=== PATIENT | male | born 1970 | race Caucasian/White ===

== ENCOUNTER 2017-05-11 14:57 | Emergency (ER) | payer SELFPAY ==
[2017-05-11 15:03] VITALS: BP 179/103; BMI 28.1
--- NOTE | 2017-05-11 15:25 | DR.GENAD ---
HPI - PCP Primary Care Physician: none - Complaint/Symptoms Chief Complaint Doctors Comments: Patient presents with complatin of blood pressure systolic 170s, for the past week. He has no physician. He also reports that he has had frontal headacge fir tge oast tgree days. Chief Complaint:: " I have had high blood pressure for three days now" No other problems with patient besides that - Source History Provided: Patient - Mode of Arrival Mode of Arrival: Ambulatory - Timing Onset of Chief Complaint: 05/08/17 PMH - PMH Past Medical History: Yes Past Medical History: Arthritis, GERD Past Surgical History: Yes Surgical History: Tonsillectomy - Family History History of Family Medical Conditions: Yes Family Medical History: Diabetes Mellitus, Cancer, Heart Failure, Hypertension - Social History Does patient currently use any type of tobacco product: No Have you used tobacco products in the last 12 months: No Type of Tobacco Use: None Does any household member use tobacco: No Alcohol Use: None Do you use any recreational Drugs:: No Lives With: Family Lives Where: Home - infectious screening In the last 2 months have you had wt loss of >10#?: NO Have you had fever, night sweats or hemotysis?: No Have you traveled outside the country in the last 6 months?: No Isolation: Standard ROS - Review of Systems Constitutional: No Symptoms Reported Eyes: No Symptoms Reported ENTM: No Symptoms Reported Respiratoy: No Symptoms Reported Cardiovascular: No Symptoms Reported Gastrointestinal/Abdominal: No Symptoms Reported Genitourinary: No Symptoms Reported Neurological: No Symptoms Reported Musculoskeletal: No Symptoms Reported Integumentary: No Symptoms Reported Hematologic/Lymphatic: No Symptoms Reported Endocrine: No Symptoms Reported Psychiatric: No Symptoms Reported All Other Systems: Reviewed and Negative PE - Vital Signs Vitals: Temperature 98 F Pulse Rate 71 Respiratory Rate 18 Blood Pressure 179/103 O2 Sat by Pulse Oximetry 98 - General General Appearance: Alert - Head Head Exam: Normal Inspection, Atraumatic - Eyes Eye exam: Normal Appearance, PERRL, EOMI - ENT ENT Exam: Normal Exam External Ear Exam: Normal External Inspection TM/Canal Exam: Bilateral Normal Nose Exam: Normal Nose Exam Mouth Exam: Normal Inspection Throat Exam: Normal Inspection - Neck Neck Exam: Normal Inspection - Chest Chest Inspection: Normal Inspection, Symmetric Chest Wall Rise - Respiratory Respiratory Exam: Normal Lung Sounds Bilat Respiratory Exam: Bilateral Clear to Auscultation - Cardiovascular Cardiovascular Exam: Regular Rate, Normal Rhythm - Abdominal Exam Abdominal Exam: Normal Inspection Abdominal Tenderness: negative: RUQ, RLQ, LUQ, LLQ, Epigastrium, Suprapubic, Diffuse, Mild, Moderate, Severe, Other - Extremities Extremities Exam: Normal Inspection, Full ROM - Back Back Exam: Normal Inspection, Full ROM - Neurologic Neurological Exam: Alert, Oriented X3, CN II-XII Intact - Psychiatric Psychiatric Exam: Normal Affect, Normal Mood - Skin Skin Exam: Warm, Dry, Intact MDM - Additional Information Findings: visual acuity 20/30 OD;20/25 OS - Diagnosis Discharge Problem: Headache Qualifiers: Headache type: unspecified Headache chronicity pattern: acute headache Intractability: not intractable Qualified Code(s): R51 - Headache - Discharge Plan Condition: Stable - Follow ups/Referrals Follow ups/Referrals: NFD,None [Primary Care Provider] - 3 days - Instructions
[2017-05-11] MEDS ORDERED: TORADOL 60 MG VIAL IM ONE (15:29)
[2017-05-11] MEDS ORDERED: TORADOL 60 MG VIAL ONE (15:30)
== END 2017-05-11 15:40 | disposition home or self-care (01) ==
LOC: ER 15:04
DX: R51 Headache (principal)
CPT/HCPCS: 96372; 99282; J1885

== ENCOUNTER 2017-08-14 14:42 | Emergency (ER) | payer SELFPAY ==
[2017-08-14 14:47] VITALS: BMI 26.6
--- NOTE | 2017-08-14 15:19 | DR.EXTPAIN ---
HPI - Time seen Time seen: 15:15 - PCP Primary Care Physician: leon - HPI Comment HPI Comment: PATIENT SAID PAIN IS GETTING WORSE. NO DRAINAGE REPORTED. - Complaint/Symptoms Chief Complaint Doctor Comments: REDNESS AND SWELLING LT BREAST WITH PUSTULAR RASH RT CHEST AND ANGLE OF RT MOUTH. HAVE HISTORY OF MRSA INFECTION. NO FEVER. Chief Complaint:: pt stated he has a knot under his left arm that has been on there for 3 days. pt stated he has a hx of mrsa - Nurses notes reviewed Nurses Notes Review: Yes - Source History Provided: Patient - Mode of arrival Mode of Arrival: Ambulatory - Timing Onset of Chief Complaint: 08/12/17 - Context History of: None - Associated signs and symptoms Associated Signs and Symptoms: Pain, Swelling PMH - PMH Past Medical History: Yes Past Medical History: Arthritis, GERD Past Surgical History: Yes Surgical History: Tonsillectomy - Family History History of Family Medical Conditions: Yes Family Medical History: Diabetes Mellitus, Cancer, Heart Failure, Hypertension - Social History Does patient currently use any type of tobacco product: No Have you used tobacco products in the last 12 months: No Type of Tobacco Use: None Does any household member use tobacco: No Alcohol Use: None Do you use any recreational Drugs:: No Lives With: Family Lives Where: Home - infectious screening In the last 2 months have you had wt loss of >10#?: NO Have you had fever, night sweats or hemotysis?: No Have you traveled outside the country in the last 6 months?: No Isolation: Standard ROS - Review of Systems Constitutional: Fever (AT HOME, FEVER NOTED) Eyes: No Symptoms Reported ENTM: No Symptoms Reported Respiratoy: No Symptoms Reported Cardiovascular: Other (LT BREAST REDNESS, RT CHEST PUSTULAR RASH CRUSTED AND RASH ANGLE RT MOUTH.) Gastrointestinal/Abdominal: No Symptoms Reported Genitourinary: No Symptoms Reported Neurological: No Symptoms Reported Musculoskeletal: No Symptoms Reported Integumentary: Lesions (SKIN LESIONS RT CHEST AND CORNER RT MOUTH.), Other ( REDNESS LEFT BREAST.) Hematologic/Lymphatic: No Symptoms Reported Endocrine: No Symptoms Reported All Other Systems: Reviewed and Negative PE - Vital Signs Vitals: Temperature 98.0 F Pulse Rate 67 Respiratory Rate 16 Blood Pressure 157/99 O2 Sat by Pulse Oximetry 100 - General Limitations: No Limitations General Appearance: Alert - Head Head Exam: Normal Inspection - Eyes Eye exam: Normal Appearance - ENT ENT Exam: Normal External Ear Exam, Other (SKIN LESION RT ANKLE OF MOUTH.) - Neck Neck Exam: Normal Inspection - Chest Chest Inspection: Symmetric Chest Wall Rise - Respiratory Respiratory Exam: Normal Lung Sounds Bilat Respiratory Exam: Bilateral Clear to Auscultation - Cardiovascular Cardiovascular Exam: Regular Rate, Normal Rhythm, Normal Heart Sounds - Abdominal Exam Abdominal Exam: Normal Bowel Sounds, Soft. negative: Tenderness - Back Back Exam: Normal Inspection - Neurological Neurological Exam: Alert, Oriented X3 - Psychiatric Psychiatric Exam: Normal Affect, Normal Mood - Skin Skin Exam: Erythema, Other (REDNESS AND TENDERNESS LT BREAST) MDM - Differential Diagnosis Differential Diagnosis: Other (CELLULITIS LT BREAST, HISTORY MRSA INFECTION, PUSTULAR RASH RT CHEST.LESION ANGLE RT MOUTH.) Course - Treatment Treatment: SEE ORDERS. - Education/Counseling Education/Counseling: Patient, Family, Education Educated On: Diagnosis, Needs for Follow Up ROR - Labs Reviewed Laboratory Results Reviewed?: Yes Result Diagrams: 08/15/17 04:53 08/15/17 04:53 Laboratory: WBC 8.0 X10^3/uL (3.6-10.0) 08/14/17 15:30 RBC 5.16 X10^6/uL (4.7-6.0) 08/14/17 15:30 Hgb 15.8 g/dL (13.5-18.0) 08/14/17 15:30 Hct 44.7 % (42.0-54.0) 08/14/17 15:30 MCV 86.5 fL (80.0-100.0) 08/14/17 15:30 MCH 30.7 pg (27.0-34.0) 08/14/17 15:30 MCHC 35.4 g/dL (33.0-35.0) H 08/14/17 15:30 RDW 13.3 % (11.6-16.5) 08/14/17 15:30 Plt Count 241 X10^3/uL (150.0-450.0) 08/14/17 15:30 MPV 8.6 fL (7.4-11.0) 08/14/17 15:30 Neut % (Auto) 67.8 % (42.0-75.0) 08/14/17 15:30 Lymph % (Auto) 20.4 % (21.0-51.0) L 08/14/17 15:30 Tate % (Auto) 6.0 % (0.0-13.0) 08/14/17 15:30 Eos % (Auto) 4.9 % (0.9-2.9) H 08/14/17 15:30 Baso % (Auto) 0.9 % (0.2-1.0) 08/14/17 15:30 Neut # (Auto) 5.4 x10^3/uL (2.2-4.8) H 08/14/17 15:30 Lymph # (Auto) 1.6 X10^3/uL (1.3-2.9) 08/14/17 15:30 Tate # (Auto) 0.5 x10^3/uL (0.3-0.8) 08/14/17 15:30 Eos # (Auto) 0.4 x10^3/uL (0.0-0.2) H 08/14/17 15:30 Baso # (Auto) 0.1 X10^3/uL (0.0-0.1) 08/14/17 15:30 Absolute Nucleated RBC 0.0 /100WBC 08/14/17 15:30 Sodium 139 mmol/L (136-145) 08/14/17 15:30 Corrected Sodium TNP 08/14/17 15:30 Potassium 5.4 mmol/L (3.5-5.1) H 08/14/17 15:30 Chloride 101 mmol/L (98-107) 08/14/17 15:30 Carbon Dioxide 32.9 mmol/L (21-32) H 08/14/17 15:30 BUN 10 mg/dL (7-18) 08/14/17 15:30 Creatinine 1.21 mg/dL (0.70-1.30) 08/14/17 15:30 Est GFR (MDRD) Af Amer > 60 (>60) 08/14/17 15:30 Est GFR (MDRD) Non-Af > 60 (>60) 08/14/17 15:30 Glucose 107 mg/dL (65-99) H 08/14/17 15:30 Calcium 9.5 mg/dL (8.5-10.1) 08/14/17 15:30 Corrected Calcium TNP 08/14/17 15:30 Total Bilirubin 1.00 mg/dL (0.2-1.0) 08/14/17 15:30 AST 85 Units/L (15-37) H 08/14/17 15:30 ALT 125 Units/L (12-78) H 08/14/17 15:30 Alkaline Phosphatase 143 Units/L (46-116) H 08/14/17 15:30 Total Protein 8.1 g/dL (6.4-8.2) 08/14/17 15:30 Albumin 3.7 g/dL (3.4-5.0) 08/14/17 15:30 Globulin 4.4 g/dL (2.5-4.5) 08/14/17 15:30 Albumin/Globulin Ratio 0.8 Ratio (1.1-2.1) L 08/14/17 15:30 - Diagnosis Discharge Problem: Acute mastitis of left breast, History of MRSA infection - Discharge Plan Disposition: ADMITTED INPATIENT Condition: Stable - Follow ups/Referrals - Instructions
[2017-08-14 15:53] LABS: BASOPHILS # (AUTO) 0.1 X10^3/uL (0.0-0.1); BASOPHILS % (AUTO) 0.9 % (0.2-1.0); EOSINOPHILS # (AUTO) 0.4 x10^3/uL (0.0-0.2); EOSINOPHILS % (AUTO) 4.9 % (0.9-2.9); HEMATOCRIT 44.7 % (42.0-54.0); HEMOGLOBIN 15.8 g/dL (13.5-18.0); LYMPHOCYTES # (AUTO) 1.6 X10^3/uL (1.3-2.9); LYMPHOCYTES % (AUTO) 20.4 % (21.0-51.0); MEAN CORPUSCULAR HEMOGLOBIN 30.7 pg (27.0-34.0); MEAN CORPUSCULAR HGB CONC 35.4 g/dL (33.0-35.0); MEAN CORPUSCULAR VOLUME 86.5 fL (80.0-100.0); MEAN PLATELET VOLUME 8.6 fL (7.4-11.0); MONOCYTES # (AUTO) 0.5 x10^3/uL (0.3-0.8); NEUTROPHILS # (AUTO) 5.4 x10^3/uL (2.2-4.8); NEUTROPHILS % (AUTO) 67.8 % (42.0-75.0); PLATELET COUNT 241 X10^3/uL (150.0-450.0); RED BLOOD COUNT 5.16 X10^6/uL (4.7-6.0); RED CELL DISTRIBUTION WIDTH 13.3 % (11.6-16.5)
[2017-08-14 16:00] LABS: ALANINE AMINOTRANSFERASE 125 Units/L (12-78); ALBUMIN 3.7 g/dL (3.4-5.0); ALKALINE PHOSPHATASE 143 Units/L (46-116); ASPARTATE AMINO TRANSFERASE 85 Units/L (15-37); BLOOD UREA NITROGEN 10 mg/dL (7-18); CALCIUM 9.5 mg/dL (8.5-10.1); CARBON DIOXIDE 32.9 mmol/L (21-32); CHLORIDE 101 mmol/L (98-107); CREATININE 1.21 mg/dL (0.70-1.30); SODIUM 139 mmol/L (136-145); TOTAL PROTEIN 8.1 g/dL (6.4-8.2); eGFR BLACK RACES > 60 (>60); eGFR NON BLACK RACES > 60 (>60)
[2017-08-14] MEDS ORDERED: VANCOMYCIN HCL IV ONE (16:53)
[2017-08-14] MEDS ORDERED: TORADOL 30 MG VIAL IVP ONE (16:53)
[2017-08-14] MEDS ORDERED: D5W IV ONE (16:53)
[2017-08-14] MEDS ORDERED: TORADOL 30 MG VIAL ONE (16:58)
[2017-08-14] MEDS ORDERED: VANCOMYCIN HCL 1 GM VIAL ONE (16:58)
[2017-08-14] MEDS ORDERED: NS 250 ML IV 250 ML IV ONE (16:59)
[2017-08-14 17:04] LABS: BILIRUBIN,URINE NEGATIVE (NEGATIVE); BLOOD/HEMOGLOBIN,URINE NEGATIVE (NEGATIVE); GLUCOSE, URINE NEGATIVE (NEGATIVE); KETONES,URINE NEGATIVE (NEGATIVE); LEUKOCYTE ESTERASE ,URINE NEGATIVE (NEGATIVE); NITRITES,URINE NEGATIVE (NEGATIVE); PROTEIN,URINE NEGATIVE (NEGATIVE); UROBILINOGEN,URINE NORMAL (NORMAL)
[2017-08-14 17:12] LABS: C-REACTIVE PROTEIN 18.4 mg/L (0-3.0)
[2017-08-14 17:12] LABS: APPEARANCE,URINE CLEAR (CLEAR); COLOR,URINE YELLOW (YELLOW)
[2017-08-14 17:22] LABS: LACTIC ACID 1.3 mmol/L (0.4-2.0)
[2017-08-14] MEDS ORDERED: PHENERGAN TAB 25 MG PO PRN (17:32)
[2017-08-14] MEDS: LR 1000 ML IV 1,000 ML IV SCH (18:22)
[2017-08-14] MEDS: CLEOCIN 600 MG IV PREMIX 600 MG/50 ML BAG IV SCH (22:00)
[2017-08-15] MEDS: LR 1000 ML IV 1,000 ML IV SCH ×3 (02:35→17:55)
[2017-08-15 05:25] LABS: BASOPHILS # (AUTO) 0.1 X10^3/uL (0.0-0.1); BASOPHILS % (AUTO) 1.7 % (0.2-1.0); EOSINOPHILS # (AUTO) 0.6 x10^3/uL (0.0-0.2); EOSINOPHILS % (AUTO) 7.4 % (0.9-2.9); HEMATOCRIT 42.5 % (42.0-54.0); HEMOGLOBIN 14.8 g/dL (13.5-18.0); LYMPHOCYTES % (AUTO) 36.3 % (21.0-51.0); MEAN CORPUSCULAR HEMOGLOBIN 30.3 pg (27.0-34.0); MEAN CORPUSCULAR HGB CONC 34.8 g/dL (33.0-35.0); MEAN CORPUSCULAR VOLUME 87.2 fL (80.0-100.0); MEAN PLATELET VOLUME 8.8 fL (7.4-11.0); MONOCYTES # (AUTO) 0.5 x10^3/uL (0.3-0.8); MONOCYTES % (AUTO) 5.7 % (0.0-13.0); NEUTROPHILS # (AUTO) 4.1 x10^3/uL (2.2-4.8); NEUTROPHILS % (AUTO) 48.9 % (42.0-75.0); PLATELET COUNT 245 X10^3/uL (150.0-450.0); RED BLOOD COUNT 4.88 X10^6/uL (4.7-6.0); RED CELL DISTRIBUTION WIDTH 12.8 % (11.6-16.5); WHITE BLOOD COUNT 8.3 X10^3/uL (3.6-10.0)
[2017-08-15 05:32] LABS: ALANINE AMINOTRANSFERASE 109 Units/L (12-78); ALBUMIN 3.1 g/dL (3.4-5.0); ALKALINE PHOSPHATASE 140 Units/L (46-116); ASPARTATE AMINO TRANSFERASE 67 Units/L (15-37); BLOOD UREA NITROGEN 11 mg/dL (7-18); CALCIUM 8.4 mg/dL (8.5-10.1); CARBON DIOXIDE 29.9 mmol/L (21-32); CHLORIDE 101 mmol/L (98-107); COR CA(FOR HYPOALB) 9.1 mg/dL (8.5-10.1); COR NA(FOR HYPERGLY) 140 mmol/L (136-145); CREATININE 1.08 mg/dL (0.70-1.30); SODIUM 139 mmol/L (136-145); TOTAL PROTEIN 6.9 g/dL (6.4-8.2); eGFR BLACK RACES > 60 (>60); eGFR NON BLACK RACES > 60 (>60)
[2017-08-15] MEDS ORDERED: MAGNESIUM SULFATE 1 GM/100 mL PREMIX 1 GM/100 ML BAG IV PRN (06:18)
[2017-08-15] MEDS ORDERED: POTASSIUM CHL 60 MEQ/NS 0.45% 500 ML IV PRN (06:18)
[2017-08-15] MEDS ORDERED: POTASSIUM CHL 40 MEQ/NS 0.45% 500 ML IV PRN (06:18)
[2017-08-15] MEDS ORDERED: POTASSIUM CHLORIDE LIQ 20 MEQ UDC PO PRN (06:18)
[2017-08-15] MEDS ORDERED: K-RIDER 10 MEQ/NS 100 ML 10 MEQ/100 ML BAG IV PRN (06:18)
[2017-08-15] MEDS ORDERED: K-LYTE EFFERVESCENT PO PRN (06:18)
[2017-08-15] MEDS: CLEOCIN 600 MG IV PREMIX 600 MG/50 ML BAG IV SCH ×3 (06:34→21:33)
[2017-08-15] MEDS: MOTRIN TAB 600 MG PO PRN (15:32)
--- NOTE | 2017-08-15 16:47 | US ---
History: Elevated liver enzymes Exam: Liver ultrasound Comparison: None Technique: Multiple grayscale and color flow Doppler images of the liver were obtained. Findings: The liver appears mildly enlarged with hypertrophy of the caudate and left lobes . The parenchyma is normal in echogenicity with no focal mass. There is hepatopetal flow in the portal vein and visualize d hepatic veins and IVC are unremarkable. The gallbladder is contracted with no gallstones or sludge. There is mild wall thickening throughout. No wall edema or pericholecystic fluid is seen. The right kidney measures 13 cm in length and is normal in echogenicity with no hydronephrosis or renal stones. The common duct measures 5 mm. The right kidney is grossly unremarkable. IMPRESSION: Borderline hepatomegaly with no focal lesion. Contracted gallbladder with diffuse mild wall thickening. No gallstones or sludge is seen. If there i s persistent clinical concern for the gallbladder , suggest further fasting and obtaining a follow-up ultrasound. Reported By:
[2017-08-15] MEDS: NORVASC TAB 5 MG PO SCH (17:30)
[2017-08-15] MEDS: AMBIEN PO PRN (23:00)
[2017-08-16 05:23] LABS: BASOPHILS # (AUTO) 0.1 X10^3/uL (0.0-0.1); BASOPHILS % (AUTO) 1.1 % (0.2-1.0); EOSINOPHILS # (AUTO) 0.7 x10^3/uL (0.0-0.2); EOSINOPHILS % (AUTO) 8.9 % (0.9-2.9); HEMATOCRIT 42.8 % (42.0-54.0); HEMOGLOBIN 14.8 g/dL (13.5-18.0); LYMPHOCYTES # (AUTO) 2.5 X10^3/uL (1.3-2.9); LYMPHOCYTES % (AUTO) 31.1 % (21.0-51.0); MEAN CORPUSCULAR HEMOGLOBIN 30.2 pg (27.0-34.0); MEAN CORPUSCULAR HGB CONC 34.6 g/dL (33.0-35.0); MEAN CORPUSCULAR VOLUME 87.2 fL (80.0-100.0); MEAN PLATELET VOLUME 8.6 fL (7.4-11.0); MONOCYTES # (AUTO) 0.4 x10^3/uL (0.3-0.8); NEUTROPHILS # (AUTO) 4.4 x10^3/uL (2.2-4.8); NEUTROPHILS % (AUTO) 53.9 % (42.0-75.0); PLATELET COUNT 260 X10^3/uL (150.0-450.0); RED BLOOD COUNT 4.91 X10^6/uL (4.7-6.0); WHITE BLOOD COUNT 8.1 X10^3/uL (3.6-10.0)
[2017-08-16] MEDS: LR 1000 ML IV 1,000 ML IV SCH ×3 (05:26→18:12)
[2017-08-16] MEDS: CLEOCIN 600 MG IV PREMIX 600 MG/50 ML BAG IV SCH ×3 (05:26→21:02)
[2017-08-16 05:36] LABS: ALANINE AMINOTRANSFERASE 148 Units/L (12-78); ALBUMIN 3.1 g/dL (3.4-5.0); ALKALINE PHOSPHATASE 148 Units/L (46-116); ASPARTATE AMINO TRANSFERASE 78 Units/L (15-37); BLOOD UREA NITROGEN 8 mg/dL (7-18); CALCIUM 7.9 mg/dL (8.5-10.1); CARBON DIOXIDE 25.9 mmol/L (21-32); CHLORIDE 103 mmol/L (98-107); COR CA(FOR HYPOALB) 8.6 mg/dL (8.5-10.1); COR NA(FOR HYPERGLY) 139 mmol/L (136-145); CREATININE 1.02 mg/dL (0.70-1.30); SODIUM 138 mmol/L (136-145); TOTAL PROTEIN 6.8 g/dL (6.4-8.2); eGFR BLACK RACES > 60 (>60); eGFR NON BLACK RACES > 60 (>60)
[2017-08-16] MEDS: NORVASC TAB 5 MG PO SCH (09:16)
[2017-08-16] MEDS: MOTRIN TAB 600 MG PO PRN (14:41)
[2017-08-16] MEDS: AMBIEN PO PRN (21:02)
[2017-08-17] MEDS: LR 1000 ML IV 1,000 ML IV SCH ×2 (04:06→11:17)
[2017-08-17 05:14] LABS: BASOPHILS # (AUTO) 0.1 X10^3/uL (0.0-0.1); EOSINOPHILS # (AUTO) 0.7 x10^3/uL (0.0-0.2); EOSINOPHILS % (AUTO) 7.8 % (0.9-2.9); HEMATOCRIT 42.3 % (42.0-54.0); HEMOGLOBIN 14.7 g/dL (13.5-18.0); LYMPHOCYTES # (AUTO) 3.4 X10^3/uL (1.3-2.9); MEAN CORPUSCULAR HGB CONC 34.7 g/dL (33.0-35.0); MEAN CORPUSCULAR VOLUME 86.5 fL (80.0-100.0); MEAN PLATELET VOLUME 8.5 fL (7.4-11.0); MONOCYTES # (AUTO) 0.5 x10^3/uL (0.3-0.8); MONOCYTES % (AUTO) 5.5 % (0.0-13.0); NEUTROPHILS # (AUTO) 4.5 x10^3/uL (2.2-4.8); NEUTROPHILS % (AUTO) 48.7 % (42.0-75.0); PLATELET COUNT 267 X10^3/uL (150.0-450.0); RED BLOOD COUNT 4.89 X10^6/uL (4.7-6.0); RED CELL DISTRIBUTION WIDTH 12.7 % (11.6-16.5); WHITE BLOOD COUNT 9.2 X10^3/uL (3.6-10.0)
[2017-08-17] MEDS: CLEOCIN 600 MG IV PREMIX 600 MG/50 ML BAG IV SCH (05:14)
[2017-08-17 05:32] LABS: ALANINE AMINOTRANSFERASE 138 Units/L (12-78); ALBUMIN 3.1 g/dL (3.4-5.0); ALKALINE PHOSPHATASE 138 Units/L (46-116); ASPARTATE AMINO TRANSFERASE 61 Units/L (15-37); BLOOD UREA NITROGEN 9 mg/dL (7-18); CALCIUM 7.9 mg/dL (8.5-10.1); CARBON DIOXIDE 27.7 mmol/L (21-32); CHLORIDE 103 mmol/L (98-107); COR CA(FOR HYPOALB) 8.6 mg/dL (8.5-10.1); COR NA(FOR HYPERGLY) 138 mmol/L (136-145); CREATININE 1.04 mg/dL (0.70-1.30); SODIUM 138 mmol/L (136-145); TOTAL PROTEIN 6.8 g/dL (6.4-8.2); eGFR BLACK RACES > 60 (>60); eGFR NON BLACK RACES > 60 (>60)
[2017-08-17] MEDS: NORVASC TAB 5 MG PO SCH ×2 (09:12→09:13)
[2017-08-17 10:29] VITALS: BP 142/86
--- NOTE | 2017-08-17 11:50 | US ---
HISTORY: Abdominal pain. Study: Right upper quadrant abdominal ultrasound Comparison: None. Technique: Multiple dennis scale and color flow Doppler images of the right upper quadrant were obtaine d. Findings: The liver is normal in echotexture and size. No focal intraparenchymal mass or intrahepatic biliary ductal dilatation can be observed. The gallbladder fails to demonstrate evidence for cholelithiasis or layering sludge. The common bile duct is unremarkable measuring 4 mm. No pericholecystic fluid o r gallbladder wall thickening can be observed. The CBD measures within normal limits. The right kidne y appears normal in size without focal parenchymal mass or nephrolithiasis. The right kidney measure rs 11 x 6 x 5 cm. No hydronephrosis or perirenal fluid can be observed. The pancreas is largely obs cured by overlying bowel gas. No ascites is seen. IMPRESSION: 1. Unremarkable examination of the right upper quadrant. Reported By:
== END 2017-08-17 12:40 | disposition home or self-care (01) ==
LOC: ER 14:51 → MED/SURG 16:41
PROVIDERS: ADMIT Internal Medicine; ATTEND Internal Medicine
DX: N61.1 Abscess of the breast and nipple (principal); Z86.14 Personal history of Methicillin resistant Staphylococcus aureus infection; I10 Essential (primary) hypertension; R94.5 Abnormal results of liver function studies; R16.0 Hepatomegaly, not elsewhere classified
CPT/HCPCS: 36415; 76705; 80053; 81003; 83605; 83735; 85025; 86140; 87040; 96365; 96367; 96374; 96375; 99217; 99282; 99284; A4222; G0378; J0077; J1885; J3370; J7120